=== PATIENT | female | born 1965 | race Caucasian/White ===

== ENCOUNTER 2018-02-10 22:45 | Inpatient (IN) | payer BC ==
[2018-02-11] MEDS ORDERED: NACL 0.9% 3 ML SYG IV (00:30)
[2018-02-11] MEDS ORDERED: DOCUSATE SODIUM 100 MG CAP PO (00:30)
[2018-02-11] MEDS ORDERED: ONDANSETRON 4 MG INJ IV (00:30)
[2018-02-11] MEDS ORDERED: BISACODYL (EC) 5 MG TAB PO (00:30)
[2018-02-11 00:50] LABS: ADD MAN DIFF? NO
[2018-02-11 00:52] LABS: BASOPHILS % 0.4 % (0.0-2.0); EOSINOPHILS % 0.6 % (0.0-7.0); HEMATOCRIT 31.1 % (37.0-47.0); HEMOGLOBIN 10.5 g/dl (12.0-16.0); LYMPHOCYTES # 1.2 10^3/ul (0.8-2.9); LYMPHOCYTES % 24.3 % (15.0-51.0); MEAN CORPUSCULAR HEMOGLOBIN 31.6 pg (29.0-33.0); MEAN CORPUSCULAR HGB CONC 33.8 g/dl (32.0-37.0); MEAN CORPUSCULAR VOLUME 93.7 fl (82.0-101.0); MEAN PLATELET VOLUME 9.3 fl (7.4-10.4); MONOCYTE # 0.6 10^3/ul (0.3-0.9); MONOCYTES % 12.7 % (0.0-11.0); NEUTROPHIL # 3.1 10^3/ul (1.6-7.5); NEUTROPHILS % 61.6 % (39.0-77.0); PLATELET COUNT 140 10^3/UL (140-415); RED BLOOD COUNT 3.32 10^6/ul (4.20-5.40)
[2018-02-11] MEDS: NITROGLYCERIN (SL) 0.4 MG TAB SL (00:58)
[2018-02-11] MEDS: CHLORDIAZEPOXIDE 25 MG CAP PO ×4 (01:02→20:15)
[2018-02-11 01:08] LABS: HEMOGLOBIN A1C 5.3 % (0-5.9)
[2018-02-11 01:10] LABS: TRIGLYCERIDES 47 mg/dl (0-149)
[2018-02-11 01:10] LABS: CHOLESTEROL 213 mg/dl (100-200)
[2018-02-11 01:11] LABS: ANION GAP 8 (5-13); BLOOD UREA NITROGEN 6 mg/dl (7-20); CALCIUM 8.1 mg/dl (8.4-10.2); CARBON DIOXIDE 29 mmol/L (21-31); CHLORIDE 102 mmol/L (97-110); CREATININE 0.65 mg/dl (0.44-1.00); Estimated GFR > 60 mL/min (>60); GLUCOSE 93 mg/dl (70-220); POTASSIUM 3.6 mmol/L (3.5-5.1); SODIUM 139 mmol/L (135-144)
[2018-02-11] MEDS: LORAZEPAM 2 MG INJ IV ×4 (01:13→23:02)
[2018-02-11 01:19] LABS: HDL CHOLESTEROL 165 mg/dl (37-92)
[2018-02-11 02:21] LABS: CREATINE KINASE 481 IU/L (23-200)
[2018-02-11 02:34] LABS: CK INDEX 1.1; CK-MB 5.31 ng/ml (0.0-2.4); TROPONIN-I < 0.012 ng/ml (0.000-0.120)
[2018-02-11] MEDS: MULTIVITAMINS 10 ML, THIAMINE 100 MG, FOLIC ACID 1 MG in SOD CHLORIDE 0.9% 1,000 ML IVPB ×2 (05:00→08:58)
[2018-02-11 05:32] LABS: HAAIG REFLEX REFLEX FILED
[2018-02-11 05:52] LABS: CREATINE KINASE 444 IU/L (23-200)
[2018-02-11 05:53] LABS: IRON 54 ug/dl (35-150)
[2018-02-11 06:02] LABS: % IRON SATURATION 30 % SAT (22-52); TOTAL IRON BINDING CAPACITY 178 ug/dl (241-421)
[2018-02-11 06:05] LABS: CK INDEX 1.1; CK-MB 5.06 ng/ml (0.0-2.4); TROPONIN-I < 0.012 ng/ml (0.000-0.120)
[2018-02-11 06:12] LABS: FREE T3 4.94 pg/ml (2.77-5.27); FREE T4 (FREE THYROXINE) 1.08 ng/dl (0.64-1.79)
[2018-02-11 06:25] LABS: HEPATITIS B SURFACE ANTIGEN NEGATIVE (NEGATIVE)
[2018-02-11 06:42] LABS: HEPATITIS B CORE ANTIBODY NEGATIVE (NEGATIVE); HEPATITIS C VIRAL ANTIBODY NEGATIVE (NEGATIVE)
[2018-02-11 07:01] LABS: FOLATE 18.3 ng/ml (2.8-20.0)
[2018-02-11] MEDS: THIAMINE 200 MG INJ IM (08:58)
[2018-02-12] MEDS: LORAZEPAM 2 MG INJ IV ×4 (03:20→20:13)
[2018-02-12 05:50] LABS: ADD MAN DIFF? NO
[2018-02-12 06:06] LABS: BASOPHILS % 1.1 % (0.0-2.0); EOSINOPHILS # 0.1 10^3/ul (0.0-0.5); EOSINOPHILS % 3.3 % (0.0-7.0); HEMATOCRIT 31.5 % (37.0-47.0); HEMOGLOBIN 10.6 g/dl (12.0-16.0); LYMPHOCYTES # 1.2 10^3/ul (0.8-2.9); LYMPHOCYTES % 32.7 % (15.0-51.0); MEAN CORPUSCULAR HEMOGLOBIN 31.8 pg (29.0-33.0); MEAN CORPUSCULAR HGB CONC 33.7 g/dl (32.0-37.0); MEAN CORPUSCULAR VOLUME 94.6 fl (82.0-101.0); MEAN PLATELET VOLUME 9.7 fl (7.4-10.4); MONOCYTE # 0.7 10^3/ul (0.3-0.9); MONOCYTES % 18.1 % (0.0-11.0); NEUTROPHIL # 1.6 10^3/ul (1.6-7.5); NEUTROPHILS % 44.3 % (39.0-77.0); PLATELET COUNT 128 10^3/UL (140-415); RED BLOOD COUNT 3.33 10^6/ul (4.20-5.40)
[2018-02-12 06:06] LABS: WHITE BLOOD COUNT 3.6 10^3/ul (4.8-10.8)
[2018-02-12 06:42] LABS: ALANINE AMINOTRANSFERASE 73 IU/L (13-69); ALKALINE PHOSPHATASE 95 IU/L (42-121); ANION GAP 7 (5-13); ASPARTATE AMINO TRANSFERASE 157 IU/L (15-46); BILIRUBIN,INDIRECT 0.6 mg/dl (0-1.1); BILIRUBIN,TOTAL 0.6 mg/dl (0.2-1.3); BLOOD UREA NITROGEN 4 mg/dl (7-20); CALCIUM 8.3 mg/dl (8.4-10.2); CARBON DIOXIDE 30 mmol/L (21-31); CHLORIDE 103 mmol/L (97-110); CREATININE 0.62 mg/dl (0.44-1.00); Estimated GFR > 60 mL/min (>60); GLUCOSE 112 mg/dl (70-220); MAGNESIUM 1.8 mg/dl (1.7-2.5); SODIUM 140 mmol/L (135-144); TOTAL PROTEIN 5.5 g/dl (6.1-8.1)
[2018-02-12] MEDS: CHLORDIAZEPOXIDE 25 MG CAP PO ×4 (09:23→20:40)
[2018-02-12] MEDS: THIAMINE 200 MG INJ IM (09:24)
[2018-02-12 11:56] LABS: ETHANOL < 10.0 mg/dl (0-0)
[2018-02-12] MEDS: ACETAMINOPHEN 325 MG TAB PO (12:11)
[2018-02-12] MEDS: MULTIVITAMINS 10 ML, THIAMINE 100 MG, FOLIC ACID 1 MG in SOD CHLORIDE 0.9% 1,000 ML IVPB (13:00)
[2018-02-12] MEDS ORDERED: POTASSIUM CHLORIDE 50 ML IVPB (15:30)
[2018-02-12] MEDS: POTASSIUM CHLORIDE 100 ML IVPB (17:33)
[2018-02-12] MEDS: POTASSIUM CHLORIDE (SR) 20 MEQ TAB PO (22:27)
[2018-02-13 06:39] LABS: ADD MAN DIFF? NO
[2018-02-13 06:53] LABS: WHITE BLOOD COUNT 3.8 10^3/ul (4.8-10.8)
[2018-02-13 06:53] LABS: BASOPHILS % 0.8 % (0.0-2.0); EOSINOPHILS # 0.1 10^3/ul (0.0-0.5); EOSINOPHILS % 2.9 % (0.0-7.0); HEMATOCRIT 31.3 % (37.0-47.0); HEMOGLOBIN 10.4 g/dl (12.0-16.0); LYMPHOCYTES # 1.3 10^3/ul (0.8-2.9); LYMPHOCYTES % 33.5 % (15.0-51.0); MEAN CORPUSCULAR HEMOGLOBIN 31.9 pg (29.0-33.0); MEAN CORPUSCULAR HGB CONC 33.2 g/dl (32.0-37.0); MEAN PLATELET VOLUME 9.7 fl (7.4-10.4); MONOCYTE # 0.7 10^3/ul (0.3-0.9); MONOCYTES % 19.1 % (0.0-11.0); NEUTROPHIL # 1.6 10^3/ul (1.6-7.5); NEUTROPHILS % 42.9 % (39.0-77.0); PLATELET COUNT 142 10^3/UL (140-415); RED BLOOD COUNT 3.26 10^6/ul (4.20-5.40); RED CELL DISTRIBUTION WIDTH 18.3 % (11.5-14.5)
[2018-02-13 07:12] LABS: ANION GAP 6 (5-13); BLOOD UREA NITROGEN 6 mg/dl (7-20); CALCIUM 8.7 mg/dl (8.4-10.2); CARBON DIOXIDE 28 mmol/L (21-31); CHLORIDE 106 mmol/L (97-110); CREATININE 0.58 mg/dl (0.44-1.00); Estimated GFR > 60 mL/min (>60); GLUCOSE 86 mg/dl (70-220); POTASSIUM 3.7 mmol/L (3.5-5.1); SODIUM 140 mmol/L (135-144)
[2018-02-13 07:30] LABS: MAGNESIUM 1.8 mg/dl (1.7-2.5)
[2018-02-13 07:39] LABS: PHOSPHORUS 3.3 mg/dl (2.5-4.9)
[2018-02-13] MEDS: MULTIVITAMINS 10 ML, THIAMINE 100 MG, FOLIC ACID 1 MG in SOD CHLORIDE 0.9% 1,000 ML IVPB (08:10)
[2018-02-13] MEDS: CHLORDIAZEPOXIDE 25 MG CAP PO ×3 (08:10→22:42)
[2018-02-13] MEDS: THIAMINE 200 MG INJ IM (10:01)
[2018-02-13] MEDS: LORAZEPAM 2 MG INJ IV ×2 (10:13→20:39)
[2018-02-14] MEDS: ZOLPIDEM 5 MG TAB PO (01:59)
[2018-02-14 06:22] LABS: ADD MAN DIFF? NO
[2018-02-14 06:25] LABS: WHITE BLOOD COUNT 4.8 10^3/ul (4.8-10.8)
[2018-02-14 06:25] LABS: BASOPHILS % 0.8 % (0.0-2.0); EOSINOPHILS # 0.1 10^3/ul (0.0-0.5); EOSINOPHILS % 2.9 % (0.0-7.0); HEMATOCRIT 33.7 % (37.0-47.0); HEMOGLOBIN 11.2 g/dl (12.0-16.0); LYMPHOCYTES # 1.6 10^3/ul (0.8-2.9); LYMPHOCYTES % 34.2 % (15.0-51.0); MEAN CORPUSCULAR HEMOGLOBIN 32.1 pg (29.0-33.0); MEAN CORPUSCULAR HGB CONC 33.2 g/dl (32.0-37.0); MEAN CORPUSCULAR VOLUME 96.6 fl (82.0-101.0); MEAN PLATELET VOLUME 9.7 fl (7.4-10.4); MONOCYTES % 21.6 % (0.0-11.0); NEUTROPHIL # 1.9 10^3/ul (1.6-7.5); NEUTROPHILS % 39.4 % (39.0-77.0); PLATELET COUNT 176 10^3/UL (140-415); RED BLOOD COUNT 3.49 10^6/ul (4.20-5.40); RED CELL DISTRIBUTION WIDTH 18.3 % (11.5-14.5)
[2018-02-14 06:45] LABS: MAGNESIUM 1.8 mg/dl (1.7-2.5)
[2018-02-14 06:45] LABS: PHOSPHORUS 4.4 mg/dl (2.5-4.9)
[2018-02-14 06:46] LABS: ALANINE AMINOTRANSFERASE 70 IU/L (13-69); ALBUMIN 3.5 g/dl (3.3-4.9); ALKALINE PHOSPHATASE 83 IU/L (42-121); ASPARTATE AMINO TRANSFERASE 118 IU/L (15-46); BILIRUBIN,INDIRECT 0.3 mg/dl (0-1.1); BILIRUBIN,TOTAL 0.3 mg/dl (0.2-1.3); TOTAL PROTEIN 5.8 g/dl (6.1-8.1)
[2018-02-14 06:48] LABS: ANION GAP 7 (5-13); BLOOD UREA NITROGEN 10 mg/dl (7-20); CALCIUM 8.8 mg/dl (8.4-10.2); CARBON DIOXIDE 31 mmol/L (21-31); CHLORIDE 102 mmol/L (97-110); CREATININE 0.69 mg/dl (0.44-1.00); Estimated GFR > 60 mL/min (>60); GLUCOSE 88 mg/dl (70-220); POTASSIUM 3.9 mmol/L (3.5-5.1); SODIUM 140 mmol/L (135-144)
[2018-02-14] MEDS: THIAMINE 200 MG INJ IM (09:00)
[2018-02-14] MEDS: MULTIVITAMINS 10 ML, THIAMINE 100 MG, FOLIC ACID 1 MG in SOD CHLORIDE 0.9% 1,000 ML IVPB (09:11)
== END 2018-02-14 14:35 | disposition left against medical advice (07) | DRG 894 ==
LOC: 6WM 02-11 08:33 → 2NE 02-13 12:59 → 6WM 22:45
DX: F10.239 Alcohol dependence with withdrawal, unspecified (principal); N17.9 Acute kidney failure, unspecified; R07.89 Other chest pain; D64.9 Anemia, unspecified; D69.6 Thrombocytopenia, unspecified; Y90.0 Blood alcohol level of less than 20 mg/100 ml
CPT/HCPCS: 80048; 80053; 80061; 80076; 80307; 82550; 82553; 82607; 82728; 82746; 83036; 83540; 83735; 84100; 84439; 84443; 84481; 84484; 85025; 86704; 86709; 86803; 87340; 90686; 93005; 97161

== ENCOUNTER 2018-02-21 18:05 | Inpatient (IN) | payer BC ==
[2018-02-21] MEDS: THIAMINE 100 MG TAB PO (12:55)
[2018-02-21] MEDS ORDERED: LORAZEPAM 2 MG INJ (19:11)
[2018-02-21] MEDS ORDERED: NACL 0.9% 3 ML SYG IV (19:30)
[2018-02-21] MEDS ORDERED: LORAZEPAM 2 MG INJ IV (19:30)
[2018-02-21] MEDS: LORAZEPAM 2 MG INJ IV ×2 (19:35→20:44)
[2018-02-21] MEDS: POLYETHYLENE GLYCOL 17 GM PACKET PO (20:13)
[2018-02-21] MEDS: SENNA TAB PO (20:14)
[2018-02-21] MEDS: CHLORDIAZEPOXIDE 25 MG CAP PO (20:14)
[2018-02-22] MEDS: LORAZEPAM 2 MG INJ IV ×2 (04:00→07:25)
[2018-02-22] MEDS: DOCUSATE SODIUM 100 MG CAP PO (04:00)
[2018-02-22] MEDS: BISACODYL 30 ML ENEMA PR (07:25)
[2018-02-22] MEDS: SENNA TAB PO ×2 (08:36→19:36)
[2018-02-22] MEDS: MULTIVITAMINS THERAPEUTIC TAB PO (08:36)
[2018-02-22] MEDS: CHLORDIAZEPOXIDE 25 MG CAP PO ×3 (08:36→20:02)
[2018-02-22] MEDS: POLYETHYLENE GLYCOL 17 GM PACKET PO ×2 (08:36→19:37)
[2018-02-22] MEDS: LORAZEPAM 1 MG TAB PO ×4 (11:00→23:09)
[2018-02-22] MEDS: THIAMINE 100 MG TAB PO ×2 (11:00→20:02)
[2018-02-22 11:43] LABS: ADD MAN DIFF? NO
[2018-02-22 11:46] LABS: WHITE BLOOD COUNT 8.6 10^3/ul (4.8-10.8)
[2018-02-22 11:46] LABS: BASOPHIL # 0.1 10^3/ul (0.0-0.1); BASOPHILS % 1.3 % (0.0-2.0); EOSINOPHILS # 0.1 10^3/ul (0.0-0.5); EOSINOPHILS % 1.2 % (0.0-7.0); HEMATOCRIT 34.7 % (37.0-47.0); HEMOGLOBIN 11.4 g/dl (12.0-16.0); LYMPHOCYTES # 1.2 10^3/ul (0.8-2.9); LYMPHOCYTES % 13.8 % (15.0-51.0); MEAN CORPUSCULAR HEMOGLOBIN 32.1 pg (29.0-33.0); MEAN CORPUSCULAR HGB CONC 32.9 g/dl (32.0-37.0); MEAN CORPUSCULAR VOLUME 97.7 fl (82.0-101.0); MEAN PLATELET VOLUME 9.3 fl (7.4-10.4); MONOCYTE # 0.9 10^3/ul (0.3-0.9); MONOCYTES % 9.8 % (0.0-11.0); NEUTROPHIL # 6.4 10^3/ul (1.6-7.5); NEUTROPHILS % 73.7 % (39.0-77.0); PLATELET COUNT 335 10^3/UL (140-415); RED BLOOD COUNT 3.55 10^6/ul (4.20-5.40); RED CELL DISTRIBUTION WIDTH 17.1 % (11.5-14.5)
[2018-02-22 12:10] LABS: ALANINE AMINOTRANSFERASE 80 IU/L (13-69); ALBUMIN 3.5 g/dl (3.3-4.9); ALBUMIN/GLOBULIN RATIO 1.34; ALKALINE PHOSPHATASE 108 IU/L (42-121); ANION GAP 5 (5-13); ASPARTATE AMINO TRANSFERASE 90 IU/L (15-46); BILIRUBIN,INDIRECT 0.7 mg/dl (0-1.1); BILIRUBIN,TOTAL 0.7 mg/dl (0.2-1.3); BLOOD UREA NITROGEN 6 mg/dl (7-20); CARBON DIOXIDE 33 mmol/L (21-31); CHLORIDE 102 mmol/L (97-110); CREATININE 0.65 mg/dl (0.44-1.00); Estimated GFR > 60 mL/min (>60); GLUCOSE 100 mg/dl (70-220); POTASSIUM 3.4 mmol/L (3.5-5.1); SODIUM 140 mmol/L (135-144); TOTAL PROTEIN 6.1 g/dl (6.1-8.1)
[2018-02-22 16:30] LABS: ADD UMIC YES; UR ASCORBIC ACID 20 mg/dL (NEGATIVE); UR BACTERIA FEW /HPF (NONE SEEN); UR BILIRUBIN (Dip) NEGATIVE (NEGATIVE); UR BLOOD (Dip) NEGATIVE (NEGATIVE); UR CLARITY SLIGHTLY CLOUDY (CLEAR); UR COLOR YELLOW (YELLOW); UR GLUCOSE (Dip) NEGATIVE (NEGATIVE); UR KETONES (Dip) NEGATIVE (NEGATIVE); UR LEUKOCYTE ESTERASE (Dip) TRACE Leu/ul (NEGATIVE); UR MUCUS FEW /HPF (NONE SEEN); UR NITRITE (Dip) POSITIVE (NEGATIVE); UR RBC 3 /HPF (0-5); UR SPECIFIC GRAVITY (Dip) 1.011 (1.003-1.030); UR TOTAL PROTEIN (Dip) NEGATIVE (NEGATIVE); UR UROBILINOGEN (Dip) NEGATIVE (NEGATIVE); UR WBC 7 /HPF (0-5)
[2018-02-23] MEDS: LORAZEPAM 1 MG TAB PO ×3 (03:59→14:29)
[2018-02-23 06:56] LABS: ALANINE AMINOTRANSFERASE 79 IU/L (13-69); ALBUMIN 3.5 g/dl (3.3-4.9); ALBUMIN/GLOBULIN RATIO 1.29; ALKALINE PHOSPHATASE 100 IU/L (42-121); ANION GAP 7 (5-13); ASPARTATE AMINO TRANSFERASE 102 IU/L (15-46); BILIRUBIN,INDIRECT 0.5 mg/dl (0-1.1); BILIRUBIN,TOTAL 0.5 mg/dl (0.2-1.3); BLOOD UREA NITROGEN 8 mg/dl (7-20); CALCIUM 9.3 mg/dl (8.4-10.2); CARBON DIOXIDE 34 mmol/L (21-31); CHLORIDE 100 mmol/L (97-110); CREATININE 0.77 mg/dl (0.44-1.00); Estimated GFR > 60 mL/min (>60); GLUCOSE 104 mg/dl (70-220); SODIUM 141 mmol/L (135-144); TOTAL PROTEIN 6.2 g/dl (6.1-8.1)
[2018-02-23] MEDS: SENNA TAB PO (09:19)
[2018-02-23] MEDS: CHLORDIAZEPOXIDE 25 MG CAP PO ×2 (09:19→12:11)
[2018-02-23] MEDS: POLYETHYLENE GLYCOL 17 GM PACKET PO (09:19)
[2018-02-23] MEDS: MULTIVITAMINS THERAPEUTIC TAB PO (09:19)
[2018-02-23 11:21] LABS: HAAIG REFLEX REFLEX FILED
[2018-02-23] MEDS: THIAMINE 100 MG TAB PO (12:11)
[2018-02-23 12:15] LABS: HEPATITIS B SURFACE ANTIGEN NEGATIVE (NEGATIVE)
[2018-02-23 12:33] LABS: HEPATITIS B CORE ANTIBODY NEGATIVE (NEGATIVE)
[2018-02-23 12:34] LABS: HEPATITIS C VIRAL ANTIBODY NEGATIVE (NEGATIVE)
[2018-02-23] MEDS ORDERED: CEFTRIAXONE 1 GM/50 ML (PMX) 50 ML IVPB (14:00)
[2018-02-23] MEDS: TRIMETHOPRIM/SULFAMETHOX (DS) TAB PO (14:29)
== END 2018-02-23 19:45 | disposition home or self-care (01) | DRG 897 ==
LOC: 5EC 18:05
DX: F10.239 Alcohol dependence with withdrawal, unspecified (principal); K59.00 Constipation, unspecified
CPT/HCPCS: 76705; 80053; 81001; 83036; 85025; 86704; 86709; 86803; 87086; 87340